=== PATIENT | female | born 2000 | race Caucasian/White ===

== ENCOUNTER 2025-10-30 05:43 | Emergency (ER) | payer OTHER, SELFPAY ==
[2025-10-30 05:45] VITALS: BP 127/84
[2025-10-30 06:11] VITALS: BMI 21.9
[2025-10-30 06:13] VITALS: BP 117/74
--- NOTE | 2025-10-30 06:23 | ED.GENMED ---
History of Present Illness
General
Chief Complaint: Cough
Source: patient
Exam Limitations: none
Time Seen by Provider: 10/30/25 06:09
History of Present Illness
History of Present Illness:
25-year-old female presents with persistent cough for the past month and 1/2 to 2 months. She notes occasional chills and sweats. She was thought initially to have bronchitis and [facility]. She was prescribed
Zithromax and a round of steroids. Initially seemed to improve some of her symptoms but they never went away. She had another round of the same treatment that finished about a week ago. She is continuing to use albuterol inhaler. She notes
persistent cough chest tightness shortness of breath. She denies any production with the cough including hemoptysis. No abdominal pain. She denies sore throat. She is on control. No other complaints at this time no recent travel or surgery
Phy Exam
Physical Exam
Physical Exam:
General: Well-appearing female no acute respiratory distress
HEENT: Normal cephalic atraumatic posterior pharynx without erythema or exudate neck is supple no adenopathy
Heart: Regular rate and rhythm
Lungs: Clear no wheeze but positive for dry cough
Extremities: No cyanosis
Course
Orders/Labs/Results
Orders:
Orders
10/30/25 06:22
Ipratropium/Albuterol Sulfate [Duoneb] 3 ml INH R NOW STA
10/30/25 06:23
Test Result ONCE
10/30/25 06:31
Complete Blood Count/With Diff Urgent
Comprehensive Metabolic Panel Urgent
D-Dimer Urgent
HCG, Serum Qualitative Screen Urgent
10/30/25 07:56
CR Chest - 2 Views Urgent
Comment:
Reason For Exam: cough
Abnormal Lab Results
10/30/25
06:31
WBC 13.2 H 10^3/uL
(4.8-10.8)
Abs Immat Gran (auto) 0.1 H 10^3/uL
(0-0.05)
Absolute Neuts (auto) 10.8 H 10^3/uL
(1.4-6.5)
Absolute Lymphs (auto) 0.9 L 10^3/uL
(1.2-3.4)
Absolute Monos (auto) 1.2 H 10^3/uL
(0.1-0.6)
Immature Gran % 1.1 H %
(0-0.5)
Neutrophils % 81.5 H %
(42.2-75.2)
Lymphocytes % 7.1 L %
(20.5-51.1)
Sodium 134 L mmol/L
(135-145)
Potassium 3.4 L mmol/L
(3.5-5.1)
BUN 5 L mg/dl
(7-17)
Total Protein 8.4 H g/dl
(6.3-8.2)
10/30/25 06:31
10/30/25 06:31
Vital Signs
Initial and Last Documented VS:
Initial Vital Signs
Temp Pulse Resp BP Pulse Ox
99.9 F 125 20 127/84 98
10/30/25 05:45 10/30/25 05:45 10/30/25 05:45 10/30/25 05:45 10/30/25 05:45
Last Documented Vital Signs
Temp Pulse Resp BP Pulse Ox
99.9 F 107 24 117/74 98
10/30/25 05:45 10/30/25 06:13 10/30/25 06:13 10/30/25 06:13 10/30/25 06:25
MDM/Problems Addressed
Differential Diagnosis Includes:
Patient with persistent cough. Differential could include bronchitis versus post bronchitic cough versus PE versus pneumonia or GERD
Not hypoxic but tachycardic at rest. D-dimer will be ordered secondary to tachycardia and use of oral contrast to this. Will try DuoNeb. If D-dimer elevated will order CT.
*Pulse Oximetry
SaO2: 98
Oxygen Mode of Delivery: Room air
Patient hypoxic: no
*Critical Care Note
Total Time (30-74mins, 75-104mins- exclusive of procedures): Not Applicable
Update Note
Update Note:
D-dimer within normal limits chest x-ray was ordered and personally reviewed and is negative for acute cardiopulmonary abnormality. Patient received some relief after nebulizer here. I suspect post bronchitic cough. Will recommend continued use
of nebulizer and will prescribe Tessalon. Pulmonology referral was made.
ED Attending Note
-
Portions of this chart may have been created with voice recognition software.� Occasional wrong word or��sound alike� substitutions may have occurred due to the inherent limitations of voice recognition software.
Discharge Plan
Departure
Patient Disposition: Home (Routine Discharge)
Date of Disposition: 10/30/25
Time of Disposition: 08:55
Patient with high blood pressure during this ER visit?: No
Discharge Problem:
Cough
Instructions: Cough, Adult (DC)
Prescriptions:
New
ipratropium-albuterol 0.5 mg-3 mg(2.5 mg base)/3 mL solution for nebulization
3 ml inhalation QID PRN (Reason: shortness of breath) Qty: 90 0RF
benzonatate 100 mg capsule
100 mg PO TID PRN (Reason: Cough) Qty: 12 0RF
(DME) nebulizers [Compact Compressor Nebulizer] Misc
See Rx Instructions .ROUTE Qty: 1 0RF
Rx Instructions:
As directed
No Action
albuterol sulfate
2 inh inhalation Q4H
Referrals:
Christopher Morris MD [Active, Pulmonary Medicine]
PRIVATE,PHYSICIAN [Family Provider, Internal Medicine]
Stand Alone Forms: Return to Work
Activity Restrictions/Additional Instructions:
Use nebulizer as needed. Use cough medicine as directed. Stay hydrated. Turn if worse otherwise follow-up with pulmonology
Interventions
Interventions:
*Risk Screen - Suicide Last Done: 10/30/25 05:45
*General Assessment Last Done: 10/30/25 05:45
*Neglect/Abuse Screening Last Done: 10/30/25 05:45
*ED- Fall Risk Assessment Last Done: 10/30/25 05:45
*ED COVID-19 Vaccine History Last Done: 10/30/25 05:45
*ED Influenza Vaccine History Last Done: 10/30/25 05:45
ED- Pulmonary Assessment Last Done: 10/30/25 06:17
Discharge Date and Time
Print Language: BELARUSIAN
[2025-10-30 06:42] LABS: Hematocrit 44.0 % (37.0-47.0); Hemoglobin 15.0 g/dL (12.0-16.0); Mean Corp Hgb Conc. 34.1 g/dL (33.0-37.0); Mean Corpuscular Volume 89.1 fL (81.0-99.0); Nucleated Red Blood Cells % 0 %; Platelet Count 328 10^3/uL (130-400); Red Cell Dist. Width 11.9 % (11.5-14.5)
[2025-10-30] MEDS: DUONEB 3 ML INH (06:47)
[2025-10-30 06:58] LABS: HCG, Serum Qualitative Screen Negative
[2025-10-30 07:00] VITALS: BP 117/67
[2025-10-30 07:03] LABS: ALT (SGPT) 19 U/L (0-35); AST (SGOT) 21 U/L (14-36); Albumin 5.0 g/dl (3.5-5.0); Alkaline Phosphatase 48 U/L (38-126); Blood Urea Nitrogen 5 mg/dl (7-17); Calcium 9.5 mg/dl (8.4-10.2); Carbon Dioxide 25 mmol/L (22-30); Chloride 100 mmol/L (98-107); Estimated Creatinine Clearance 118 ml/min; Glucose 96 mg/dl (70-99); Potassium 3.4 mmol/L (3.5-5.1); Sodium 134 mmol/L (135-145); Total Protein 8.4 g/dl (6.3-8.2); eGFR > 60.00
[2025-10-30 07:31] LABS: D-Dimer 0.43 ug/mlFEU (0.00-0.50)
[2025-10-30 08:00] VITALS: BP 105/76
== END 2025-10-30 09:15 | disposition home or self-care (01) ==
LOC: EMR 05:43
PROVIDERS: Physician Assistant; EMERGENCY PHYSICIAN Emergency Medicine
DX: R05.9 Cough, unspecified (principal); R07.89 Other chest pain; R06.02 Shortness of breath; Z79.3 Long term (current) use of hormonal contraceptives
CPT/HCPCS: 99284; 94640; 71046; 80053; 84703; 85025; 85379